=== PATIENT | male | born 1945 | race Caucasian/White ===

== ENCOUNTER 2016-12-25 08:43 | Emergency (ER) | payer MEDICARE ==
[~2016-12-25] VITALS: Ht 172.7 cm; Wt 81.8 kg
[2016-12-25] MEDS ORDERED: IMODIUM2 MG PO (09:11)
[2016-12-25 09:56] LABS: HEMATOCRIT 42.3 % (39.0-50.0); HEMOGLOBIN 14.7 g/dl (14.0-18.0); IMMATURE GRANULOCYTES 0.3 % (0.0-1.0); MEAN CORPUSCULAR HGB CONC 34.8 g/L CALC (32.0-36.0); NEUT# 4.84 thou/uL (1.82-7.42); RED BLOOD COUNT 4.6 mill/uL (4.70-6.10); RED CELL DISTRI WIDTH 12.5 % (11.5-15.5)
[2016-12-25 10:30] LABS: ALBUMIN 4.5 g/dL (3.2-5.0); ALKALINE PHOSPHATASE 77 u/l (38-126); ANION GAP 16 (6-22 (CALC)); BILIRUBIN, TOTAL 1.4 mg/dL (0.0-1.4); BUN 29 mg/dL (8-23); BUN/CREATININE RATIO 30 (12-20 (CALC)); CALCIUM 8.6 mg/dL (8.4-10.2); CARBON DIOXIDE 25 mmol/l (22-30); CHLORIDE 104 mmol/l (95-108); CREATININE 0.9 mg/dL (0.7-1.3); GFR > 60 ML/MIN (>=60 (CALC)); GFR FOR AFR.AMER. > 60 ML/MIN (>=60 (CALC)); GLUCOSE 102 mg/dL (82-115); POTASSIUM 4.3 mmol/l (3.5-5.1); SGOT/AST 26 u/l (19-48); SGPT/ALT 36 u/l (11-66); SODIUM 141 mmol/l (137-146); TOTAL PROTEIN 6.8 g/dL (6.3-8.2)
[2016-12-25 11:06] VITALS: BP 110/70
== END 2016-12-25 11:09 | disposition home or self-care (01) ==
LOC: ED 08:43
PROVIDERS: Emergency Medicine
DX: R19.7 Diarrhea, unspecified (principal); K21.9 Gastro-esophageal reflux disease without esophagitis; E78.00 Pure hypercholesterolemia, unspecified

== ENCOUNTER 2019-04-05 | Day surgery (SDC) | payer MEDICARE ==
[~2019-04-05] MED LIST: B121000 MCG PO; CO Q-10300 MG PO; FLONASE AL50 MCG/ACT; IMODIUM2 MG PO; OMEPRAZOLE DR40 MG PO; PAIN RELIEF PO; PRAVASTATIN20 MG PO
== END 2019-04-05 09:10 | disposition home or self-care (01) ==
PROC: 0DB48ZX Excision of Esophagogastric Junction, Via Natural or Artificial Opening Endoscopic, Diagnostic (ICD-10-PCS; principal; 2019-04-05)
DX: K21.0 Gastro-esophageal reflux disease with esophagitis (principal); K44.9 Diaphragmatic hernia without obstruction or gangrene; K29.70 Gastritis, unspecified, without bleeding